=== PATIENT | female | born 1965 | race Two or more races ===

== ENCOUNTER → 2016-11-11 | Day surgery (SDC) | payer BC ==
--- NOTE | 2016-11-05 11:50 | MH ---
cc: GRUPOMARIA ANTONIAANNE DATE OF ADMISSION: 11/11/2016 ADMITTING DIAGNOSIS Complete rotator cuff tear of the right shoulder. Pain of the right shoulder. HISTORY The patient is a 51-year-old white female who has experienced pain of her right shoulder of at least 1-1/2 years duration. 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 She had undergone previous chiropractic intervention with the patient rhe having received adjustments for various intervals of time with minimal benefit described. The pain about the right shoulder persisted for which she was taking ibuprofen for pain management and applying ice on a regular basis. She presented to the undersigned physician in October of this past year and at that time x-ray studies of the right shoulder were without evidence of acute or chronic bony abnormality. The patient was initially diagnosed as having a subacromial bursitis for which she was treated with local steroid injection and prescribed diclofenac 75 mg. She was thereafter followed on an outpatient basis. Her symptoms lingered with generalized soreness about the shoulder area radiating into the upper arm and when seen in follow-up disposition in September of this year the patient was encouraged to proceed with MRI scan evaluation given her ongoing symptoms. Subsequent diagnostic testing in this regard identified a 5 x 6-mm full thickness tear of the distal anterior fibers of the supraspinatus tendon with surrounding tendinopathy. There was some undersurface spurring of the acromion. The patient continued to have pain about the shoulder area for which treatment options were reviewed. The pros and cons of continuing with conservative management versus operative intervention that would involve an acromioplasty of the right shoulder with an attempted mini open rotator cuff repair was reviewed in detail. Emphasis was made regarding the fact that the decision to proceed with surgery would be left entirely to the patient's discretion. The patient considered her options in this regard and given her ongoing symptoms and limitations she subsequently expressed her desire to proceed with surgery as discussed. In compliance with her wishes, she is currently being admitted in order that the above be accomplished. She is right-hand dominant. HOSPITALIZATIONS AND SURGERIES Tubal ligation. MEDICATIONS The patient takes no prescribed medications. ALLERGIES There are no indicated drug allergies. PAST MEDICAL HISTORY She has no active medical illnesses. REVIEW OF SYSTEMS She does wear glasses. Denies headache, seizure or syncope. No sinus congestion or epistaxis. Auditory acuity intact. No tinnitus. No bleeding gums or dysphagia. Denies cough, shortness of breath, upper respiratory infection, pneumonia or tuberculosis. No angina or heart disease. Her appetite is good. Bowel movements are regular. No hepatitis, gallbladder disease, ulcers or hemorrhoids. No urinary tract infection. No kidney stones. No history of fractures. No psychiatric illness. Her remaining review of systems is unremarkable and noncontributory. FAMILY HISTORY The patient has been a for three years, her at 68 years of age with a history of heart disease. Two sons indicated to be in good health. Family history is otherwise positive for hypertension and skin cancer. SOCIAL HISTORY The patient completed a high school education. 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 She denies active use of tobacco for at least 10 years but had been less than a one-pack per day user for approximately 18 years prior to that time. Ethanol consumption in the form of an occasional beer. PHYSICAL EXAMINATION VITAL SIGNS: Height 5 feet, weight 142 pounds. GENERAL: An alert, oriented and responsive 51-year-old white female who sits quietly upon examination table with no obvious distress. HEAD, EYES, EARS, NOSE, AND THROAT: Pupils are equal, round and reactive to light. Extraocular movements full. Sclerae clear. External nares clear. External auditory canals clear. Dental intact. Mucous membranes pink and moist. Pharynx clear. NECK: Supple. Active range of motion with no appreciable pain. Carotid pulse bilaterally. Trachea midline. Thyroid without enlargement. LUNGS: Clear to auscultation and percussion. No CVA tenderness. No discomfort throughout the dorsal lumbar spine. HEART: Regular rhythm. No murmur or gallop. ABDOMEN: Soft, nontender. Bowel sounds present. PELVIC: Per primary care physician. EXTREMITIES: Right Shoulder - There is mild tenderness about the superior aspect of the shoulder without palpable deformity. No obvious swelling or discoloration. Limited mobility with the patient actively attempting to posture her right hand above the head level. There was pronounced restriction of internal rotation. With passive manipulation pain is elicited in the 60-80 range of abduction maneuvering. No obvious instability or crepitation about the glenohumeral joint. Drop arm test negative. Tania's sign positive. No significant weakness of internal or external rotation. Real Estate Analyst strength intact. Sensory intact. NEUROLOGIC: Cranial nerves II-XII grossly intact. IMPRESSION Complete rotator cuff tear right shoulder. Pain right shoulder. PLAN Acromioplasty right shoulder with an attempted mini open rotator cuff repair. The nature of the planned surgical procedure, the potential complications and risks associated, the expectations of surgery and the consent form were thoroughly reviewed with the patient prior to admission to the hospital. Maria De Jesus was indicated her full understanding regarding all of the above and given consent to proceed with treatment as outlined. Medical evaluation and clearance for surgery will be completed by her primary care physician Dr. Tommie Jewell. Anne Sargent MD NBS/SSB /10:44 AM /11:38 AM
[~2016-11-11] VITALS: Ht 152.4 cm; Wt 64.8 kg
[~2016-11-11] MED LIST: *morphine SULFATE 8 MG/ML PERIprocedure ONLY ONE; ACETAMINOPHEN/HYDROcodone 325 MG/5 MG TAB PO PRN; CHLORHEXIDINE GLUCONATE 2 % 1 PACK (2 CLOTHS) TOPICAL PRN; DEXAMETHASONE SOD PHOS 4 MG/ML VIAL ONE; DO NOT ADM ANY ANTICOAGULANT DRUGS PRN; FAMOTIDINE 20 MG/2 ML VIAL ONE; INSULIN HUMAN REGULAR 1,000 UNITS/10 ML VIAL SQ PRN; LACTATED RINGER'S 1000 ML IV PRN; METOPROLOL TARTRATE 25 MG TAB PO PRN; MIDAZOLAM HCL 2 MG/2 ML VIAL ONE; MORPHINE SULFATE 10 MG/ML INJ IM PRN; NEOSTIGMINE 3 MG/3 ML SYR IV ONE; ONDANSETRON HCL 4 MG/2 ML VIAL IV PUSH ONE; ONDANSETRON HCL 4 MG/2 ML VIAL ONE; POVIDONE IODINE 5% (ANTISEPSIS KIT) 4 APPLICATIONS EACH NARE PRN; POVIDONE IODINE 7.5% SCRUB 118 ML BOTTLE TOPICAL SCH; PROPOFOL 200 MG/20 ML AMP IV ONE; SODIUM CHLORID 0.9% 500 ML IV PRN; SODIUM CHLORIDE 0.9% 20 ML VIAL ONE; ceFAZolin 2 GM PREMIX 50 ML IV SCH; fentaNYL CITRATE 250 MCG/5 ML AMP ONE
[2016-11-11 07:37] VITALS: BP 142/76; PULSE 64; RESP 18; TEMP 97.8; O2SAT 98
[2016-11-11] MEDS: ceFAZolin INJ 1,000 MG VIAL ONE (11:25)
--- NOTE | 2016-11-11 12:36 | MP ---
cc: ANNE SARGENT DATE OF SURGERY: 11/11/2016 PREOPERATIVE DIAGNOSIS Complete rotator cuff tear of the right shoulder, pain right shoulder. POSTOPERATIVE DIAGNOSIS Complete rotator cuff tear of the right shoulder, pain right shoulder. PROCEDURE Acromioplasty of the right shoulder with mini open rotator cuff repair. SURGEON Rosetta ANESTHESIA General by LMA. FORMAT Following the induction of satisfactory general anesthesia by LMA insertion as completed per the Department of Anesthesia, the patient was positioned upon the operating table in a modified beach-chair configuration. The right shoulder and upper extremity proper were isolated with a U-drape thereafter being prepped with Betadine solution and draped into a sterile field in a routine manner. Prior to initiation of the actual procedure the standard timeout protocol was completed. All parameters were appropriately addressed and confirmed by operating room personnel. A sharp skin incision was initiated over the superior aspect of the shoulder along the lateral margin of the acromion and developed through underlying subcutaneous tissue with hemostasis maintained by electrocautery. By deepening dissection the underlying acromion was exposed as was the deltoid musculature. Along the anterior raphe of the deltoid a sharp entry point was initiated and developed in a deepening fashion into the subacromial space. There was hypertrophy of the anterior margin of the acromion that was consistent with an impingement type process. An oblique osteotomy of the anterior inferior margin of the acromion was accomplished, the undersurface of which was contoured with a bone rasp. Visual and digital inspection confirmed an adequate decompression within the confines of the subacromial space. Within the substance of the supraspinatus tendon there was a full-thickness tear in a vertical orientation with attenuation of the margins of the associated tissue. The area of the tear was sharply debrided and thereafter primary repair was completed with 0 Polydek suture. Upon completion of same the joint was carried through a passive range of motion. There was no evidence of residual impingement and stability of the rotator cuff was noted. The wound was copiously irrigated with saline solution, hemostasis again being maintained by electrocautery. The deltoid was thus repaired with interrupted 0 Polydek suture. The remaining portion of the wound was closed in layers in the routine manner, skin margins being re-approximated with a running subcuticular 3-0 Vicryl suture over which Steri-Strips were applied. Xeroform gauze and a bulky dry sterile dressing were placed. The extremity being supported in an arm sling, anesthesia was discontinued and the patient thus transferred to a hospital stretcher and returned to the recovery room in satisfactory condition having tolerated her operative procedure well. Estimated blood loss was less than 20 cc. Anne Sargent MD NBS/BT /12:20 PM /12:28 PM
[2016-11-11 14:30] VITALS: BP 124/61; PULSE 56; RESP 18; TEMP 97.5; O2SAT 95
== END | disposition home or self-care (01) ==
LOC: HSDC 06:22
PROVIDERS: ATTEND Orthopaedic Surgery
DX: M75.121 Complete rotator cuff tear or rupture of right shoulder, not specified as traumatic (principal)
CPT/HCPCS: 01630; 23420; J0690; J1100; J2250; J2270; J2405; J2710; J3010; J7120